=== PATIENT | female | born 2000 | race Two or more races ===

== ENCOUNTER 2024-12-12 18:22 | Emergency (ER) | payer MEDICAID, OTHER ==
[~2024-12-12] VITALS: Ht 152.4 cm; Wt 66.3 kg
[2024-12-12 18:29] VITALS: BP 123/76; PULSE 99; RESP 16; TEMP 99; O2SAT 98
[2024-12-12] MEDS ORDERED: ACET500T58 PO (21:00)
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
== END 2024-12-12 22:05 | disposition left against medical advice (07) ==
LOC: ER 18:22
DX: S39.012A Strain of muscle, fascia and tendon of lower back, initial encounter (principal); R51.9 Headache, unspecified; Z88.6 Allergy status to analgesic agent; Z79.899 Other long term (current) drug therapy; V49.40XA Driver injured in collision with unspecified motor vehicles in traffic accident, initial encounter; Y93.89 Activity, other specified; Y92.488 Other paved roadways as the place of occurrence of the external cause; Y99.8 Other external cause status